=== PATIENT | female | born 1980 | race Caucasian/White ===

== ENCOUNTER → 2018-01-03 12:18 | Outpatient (CLI) | payer OTHER, SELFPAY ==
[2018-01-03 15:14] LABS: Free T4, Direct Thyroxine 1.04 ng/dL (0.78-2.19)
[2018-01-03 15:19] LABS: Follicle Stimulating Hormone 5.86 mIU/mL
[2018-01-03 15:28] LABS: Thyroid Stimulating Hormone 4.34 uIU/mL (0.47-4.68)
[2018-01-03 15:34] LABS: Rubella Antibody IgG 43.7 IU/mL (>15)
== END ==
PROVIDERS: Family Provider Physician Assistant Medical; PCP Physician Assistant Medical; Visit Provider Obstetrics & Gynecology
DX: N97.0 Female infertility associated with anovulation (principal)
CPT/HCPCS: 83001; 83002; 84439; 84443; 86762; 86777

== ENCOUNTER → 2018-01-23 13:26 | Outpatient (CLI) | payer OTHER, SELFPAY ==
--- NOTE | 2018-01-23 13:29 | DI.RAD.S_ITS ---
PROCEDURE: HL HYSTEROSAPINGOGRAPHY INDICATIONS: infertility COMPARISON: [facility], , PELVIC COMPLETE, 02/23/2015, 8:51. [facility], , PELVIC COMPLETE, 03/17/2015, 9:38. [facility], , FOOT 3V LEFT, 11/19/2015, 16:59. FINDINGS: Following speculum insertion, a balloon-tip catheter was inserted into the cervical canal, and secured by inflating the balloon by Dr. Garrison. Contrast was then injected into the endometrial canal. Uterus: The uterine cavity appears normal in size and morphology, without synechiae or masses. Fallopian tubes: Both fallopian tubes fill with contrast, and appear normal in caliber and morphology. There is ready dispersion of contrast into the peritoneal cavity. IMPRESSION: Normal hysterosalpingogram. Dictated by: Judith Paulino M.D. on 01/23/2018 at 16:22 Approved by: Judith Paulino M.D. on 01/23/2018 at 16:25
--- NOTE | 2018-02-13 10:06 | PM.PROC.1 ---
Procedures Date/Time Date of procedure: 01/23/18 Time of procedure: 13:45 General Procedure description: After informed consent was obtained, the patient was taken to the fluoroscopy room where she was placed in the dorsal lithotomy position. A bivalve speculum was placed into the vagina. A single-tooth tenaculum was placed on the anterior lip of the cervix. The cervix was cleaned x3 with Betadine. The HSG catheter passed easily into the endometrial cavity and the balloon was inflated. 25 cc of Isovue 300 were injected under direct fluoroscopic visualization. There were normal contours of the uterus. There was spill from both tubes immediately. The catheter was deflated and removed from the uterus. The single-tooth tenaculum was removed from the anterior lip of the cervix. The bivalve speculum was removed from the vagina. The patient tolerated the procedure well. Complications: none
== END ==
PROVIDERS: Family Provider Physician Assistant Medical; PCP Physician Assistant Medical; Visit Provider Obstetrics & Gynecology
DX: N97.9 Female infertility, unspecified (principal)
CPT/HCPCS: 58340; 74740

== ENCOUNTER → 2018-03-07 09:53 | Outpatient (CLI) | payer OTHER, SELFPAY ==
[2018-03-09 14:59] LABS: Progesterone 4.4 ng/mL
== END ==
PROVIDERS: Family Provider Physician Assistant Medical; PCP Physician Assistant Medical; Visit Provider Obstetrics & Gynecology
DX: N97.0 Female infertility associated with anovulation (principal)
CPT/HCPCS: 36415; 84144

== ENCOUNTER → 2018-08-06 12:35 | Outpatient (CLI) | payer OTHER, SELFPAY ==
[2018-08-06 13:50] LABS: HCG Quantitative /Beta subunit < 2.39 mIU/mL
== END ==
PROVIDERS: Family Provider Physician Assistant Medical; PCP Physician Assistant Medical; Visit Provider Obstetrics & Gynecology
DX: N92.6 Irregular menstruation, unspecified (principal)
CPT/HCPCS: 36415; 84702

== ENCOUNTER → 2018-09-12 07:22 | Outpatient (CLI) | payer SELFPAY ==
[2018-09-12 08:31] LABS: Final Volume 0.5 mL; Initial Volume 0.5 mL; Semen 30 min. Liquification? Yes
== END ==
PROVIDERS: Family Provider Physician Assistant Medical; PCP Physician Assistant Medical; Visit Provider Obstetrics & Gynecology
DX: N97.0 Female infertility associated with anovulation (principal)
CPT/HCPCS: 58323

== ENCOUNTER → 2018-11-01 10:56 | Outpatient (CLI) | payer SELFPAY ==
[2018-11-01 12:34] LABS: Final Volume 0.5 mL; Semen 30 min. Liquification? Yes
== END ==
PROVIDERS: PCP Physician Assistant Medical; Visit Provider Obstetrics & Gynecology
DX: N97.0 Female infertility associated with anovulation (principal)
CPT/HCPCS: 58323

== ENCOUNTER → 2018-11-29 08:07 | Outpatient (CLI) | payer SELFPAY ==
[2018-11-29 09:21] LABS: Semen 30 min. Liquification? Yes
== END ==
PROVIDERS: PCP Physician Assistant Medical; Visit Provider Obstetrics & Gynecology
DX: N97.0 Female infertility associated with anovulation (principal)
CPT/HCPCS: 58323

== ENCOUNTER → 2019-10-30 09:17 | Outpatient (CLI) | payer OTHER, SELFPAY ==
[2019-10-30 14:14] LABS: Urine N gonorrhoeae NOT DETECTED
[2019-10-30 15:18] LABS: Urine Chlamydia NOT DETECTED
== END ==
PROVIDERS: PCP Physician Assistant Medical; Visit Provider Specialist
DX: Z34.01 Encounter for supervision of normal first pregnancy, first trimester (principal)
CPT/HCPCS: 87491; 87591

== ENCOUNTER → 2019-10-30 09:37 | Outpatient (CLI) | payer OTHER, SELFPAY ==
[2019-10-30 10:11] LABS: Add Manual Diff / Slide Review NO; Basophils Absolute Auto 0 /uL (0-100); Basophils Percent Auto 0.3 % (0-2); Eosinophils Absolute Auto 0 /uL (0-450); Eosinophils Percent Auto 0.5 % (2-4); Hematocrit 39.1 % (36-46); Hemoglobin 13.6 g/dL (12.0-16.0); Lymphocytes Absolute Auto 2000 /uL (1100-4500); Lymphocytes Percent Auto 22.7 % (25-40); Mean Corpuscular HGB Conc 34.8 % (30-36); Mean Corpuscular Hemoglobin 30.7 PG (26-34); Mean Corpuscular Volume 88.2 fL (80-100); Monocytes Absolute Auto 600 /uL (0-900); Monocytes Percent Auto 7.3 % (3-14); Neutrophils Absolute Auto 6100 /uL (1500-7000); Neutrophils Percent Auto 69.2 % (50-75); Platelet Count 288 X10^3/uL (150-400); Red Blood Cell Count 4.43 X10^6/uL (4.0-5.2); Red Cell Distribution Width 13.3 % (11.6-14.8); White Blood Cell Count 8.8 X10^3/uL (4.5-11.0)
[2019-10-30 12:50] LABS: Appearance Urine UA CLEAR; Bilirubin Urine UA NEGATIVE (NEGATIVE); Color Urine UA YELLOW; Glucose Urine UA NEGATIVE (Negative); Ketones Urine UA NEGATIVE (NEGATIVE); Leukocyte Esterase Urine UA NEGATIVE (NEGATIVE); Nitrite Urine UA NEGATIVE (Negative); Occult Blood Urine UA NEGATIVE (Negative); Protein Urine UA NEGATIVE (Negative); Specific Gravity Urine UA <=1.005 (1.000-1.035); Urobilinogen Urine UA 0.2 E.U./dL (0.2)
[2019-10-30 12:52] LABS: pH Urine UA 6.5 (4.5-8.0)
[2019-10-31 05:47] LABS: RPR Screen Non Reactive (Non Reactive)
[2019-10-31 06:39] LABS: Varicella IgG Antibody 703 index (Immune >165)
[2019-10-31 16:36] LABS: Hepatitis B Surface Antigen NEGATIVE s/c (NEGATIVE); Rubella Antibody IgG 42.3 IU/mL (>15)
[2019-10-31 16:47] LABS: HIV 1 & 2 Ab/Ag 4th Gen Combo NEGATIVE (NEGATIVE); Hep C Virus Ab w/Reflex Quant NEGATIVE s/c (NEGATIVE)
== END ==
PROVIDERS: PCP Physician Assistant Medical; Referring Provider Specialist; Visit Provider Specialist
DX: Z34.01 Encounter for supervision of normal first pregnancy, first trimester (principal)
CPT/HCPCS: 36415; 80055; 81003; 86787; 86803; 86850; 86900; 86901; 87086; 87389; 87491; 87591

== ENCOUNTER 2019-11-28 05:04 | Emergency (ER) | payer OTHER, SELFPAY ==
[2019-11-28 05:12] VITALS: BP 109/73; PULSE 81; RESP 18; TEMP 36.4; O2SAT 100; BMI 31.6
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
[2019-11-28] MEDS: KETOROLAC 60 MG/2 ML VIAL 15 MG IV (05:35)
[2019-11-28] MEDS: SODIUM CHLORIDE 0.9% 1,000 ML 1000 ML IV ×2 (05:35→06:59)
--- NOTE | 2019-11-28 06:08 | PC.NURSE ---
PT stating IV is uncomfortabale and requested to have IV moved to another location. Rn DC'd LAC IV and placed new in L hand.
[2019-11-28 06:20] LABS: Add Manual Diff / Slide Review NO; Basophils Absolute Auto 0 /uL (0-100); Basophils Percent Auto 0.2 % (0-2); Eosinophils Absolute Auto 0 /uL (0-450); Eosinophils Percent Auto 0.1 % (2-4); Hematocrit 38.1 % (36-46); Hemoglobin 13.3 g/dL (12.0-16.0); Lymphocytes Absolute Auto 900 /uL (1100-4500); Lymphocytes Percent Auto 7.2 % (25-40); Mean Corpuscular Hemoglobin 30.9 PG (26-34); Mean Corpuscular Volume 88.3 fL (80-100); Monocytes Absolute Auto 300 /uL (0-900); Monocytes Percent Auto 2.6 % (3-14); Neutrophils Absolute Auto 11200 /uL (1500-7000); Neutrophils Percent Auto 89.9 % (50-75); Platelet Count 252 X10^3/uL (150-400); Red Blood Cell Count 4.32 X10^6/uL (4.0-5.2); Red Cell Distribution Width 13.3 % (11.6-14.8); White Blood Cell Count 12.5 X10^3/uL (4.5-11.0)
[2019-11-28 06:26] LABS: Alanine Aminotransferase 13 IU/L (<35); Albumin 4.4 g/dL (3.5-5.0); Albumin Globulin Ratio 1.5 (1.0-2.8); Alkaline Phosphatase 36 U/L (38-126); Aspartate Aminotransferase 22 IU/L (14-36); BUN Creatinine Ratio 15.9 (6-22); Blood Urea Nitrogen 10 mg/dL (7-17); Calcium 9.6 mg/dL (8.4-10.2); Carbon Dioxide 23 mmol/L (22-32); Chloride 103 mmol/L (98-107); Estimated Glomerular Filt Rate > 60.0 mL/min (>60); Glucose 113 mg/dL (70-100); HEMOLYSIS < 15 (0-50); Potassium 3.9 mmol/L (3.4-5.1); Sodium 135 mmol/L (137-145); Total Protein 7.4 g/dL (6.3-8.2)
[2019-11-28 06:41] VITALS: BP 99/60; PULSE 92; O2SAT 98
[2019-11-28 08:29] VITALS: BP 101/63; PULSE 74; RESP 16; O2SAT 99
== END 2019-11-28 08:38 | disposition home or self-care (01) ==
PROVIDERS: Emergency Provider Emergency Medicine; PCP Physician Assistant Medical
DX: O03.9 Complete or unspecified spontaneous abortion without complication (principal)
CPT/HCPCS: 36415; 80053; 85025; 96361; 96374; 99284; J1885

== ENCOUNTER → 2020-08-04 11:43 | Outpatient (CLI) | payer OTHER, SELFPAY ==
[2020-08-04 13:25] LABS: HCG Quantitative /Beta subunit 1485.8 mIU/mL
== END ==
PROVIDERS: PCP Physician Assistant Medical; Referring Provider Specialist; Visit Provider Specialist
DX: Z34.81 Encounter for supervision of other normal pregnancy, first trimester (principal)
CPT/HCPCS: 36415; 84702

== ENCOUNTER → 2020-08-06 11:44 | Outpatient (CLI) | payer OTHER, SELFPAY ==
[2020-08-06 12:33] LABS: HCG Quantitative /Beta subunit 3301.3 mIU/mL
== END ==
PROVIDERS: PCP Physician Assistant Medical; Referring Provider Specialist; Visit Provider Specialist
DX: Z34.81 Encounter for supervision of other normal pregnancy, first trimester (principal)
CPT/HCPCS: 36415; 84702

== ENCOUNTER → 2020-08-12 15:45 | Outpatient (CLI) | payer OTHER, SELFPAY ==
[2020-08-12 21:45] LABS: HCG Quantitative /Beta subunit 19948 mIU/mL
== END ==
PROVIDERS: PCP Physician Assistant Medical; Referring Provider Specialist; Visit Provider Specialist
DX: Z34.90 Encounter for supervision of normal pregnancy, unspecified, unspecified trimester (principal); Z87.59 Personal history of other complications of pregnancy, childbirth and the puerperium
CPT/HCPCS: 36415; 84702

== ENCOUNTER → 2020-08-14 16:06 | Outpatient (CLI) | payer OTHER, SELFPAY ==
[2020-08-14 17:40] LABS: HCG Quantitative /Beta subunit 27305 mIU/mL
== END ==
PROVIDERS: PCP Physician Assistant Medical; Referring Provider Specialist; Visit Provider Specialist
DX: Z34.90 Encounter for supervision of normal pregnancy, unspecified, unspecified trimester (principal); Z87.59 Personal history of other complications of pregnancy, childbirth and the puerperium
CPT/HCPCS: 36415; 84702

== ENCOUNTER → 2020-09-18 12:47 | Outpatient (CLI) | payer OTHER, SELFPAY ==
[2020-09-18 13:32] LABS: Add Manual Diff / Slide Review NO; Basophils Absolute Auto 0 /uL (0-100); Basophils Percent Auto 0.2 % (0-2); Eosinophils Absolute Auto 100 /uL (0-450); Eosinophils Percent Auto 0.5 % (2-4); Hematocrit 39.2 % (36-46); Hemoglobin 13.4 g/dL (12.0-16.0); Lymphocytes Absolute Auto 2400 /uL (1100-4500); Lymphocytes Percent Auto 20.8 % (25-40); Mean Corpuscular HGB Conc 34.3 % (30-36); Mean Corpuscular Hemoglobin 30.2 PG (26-34); Mean Corpuscular Volume 88.1 fL (80-100); Monocytes Absolute Auto 700 /uL (0-900); Monocytes Percent Auto 5.8 % (3-14); Neutrophils Absolute Auto 8400 /uL (1500-7000); Neutrophils Percent Auto 72.7 % (50-75); Platelet Count 274 X10^3/uL (150-400); Red Blood Cell Count 4.45 X10^6/uL (4.0-5.2); Red Cell Distribution Width 12.9 % (11.6-14.8); White Blood Cell Count 11.6 X10^3/uL (4.5-11.0)
[2020-09-18 15:45] LABS: Appearance Urine UA CLEAR; Bilirubin Urine UA NEGATIVE (NEGATIVE); Color Urine UA YELLOW; Glucose Urine UA NEGATIVE (Negative); Ketones Urine UA NEGATIVE (NEGATIVE); Leukocyte Esterase Urine UA NEGATIVE (NEGATIVE); Nitrite Urine UA NEGATIVE (Negative); Occult Blood Urine UA NEGATIVE (Negative); Protein Urine UA NEGATIVE (Negative); Urobilinogen Urine UA 0.2 E.U./dL (0.2)
[2020-09-18 19:47] LABS: Hepatitis B Surface Antigen NEGATIVE s/c (NEGATIVE); Rubella Antibody IgG 39.7 IU/mL (>15)
[2020-09-18 19:59] LABS: HIV 1 & 2 Ab/Ag 4th Gen Combo NEGATIVE (NEGATIVE); Hep C Virus Ab w/Reflex Quant NEGATIVE s/c (NEGATIVE)
[2020-09-19 05:11] LABS: RPR Screen Non Reactive (Non Reactive)
[2020-09-19 09:41] LABS: Varicella IgG Antibody 668 index (Immune >165)
== END ==
PROVIDERS: PCP Physician Assistant Medical; Referring Provider Specialist; Visit Provider Specialist
DX: O09.521 Supervision of elderly multigravida, first trimester (principal); Z36.0 Encounter for antenatal screening for chromosomal anomalies
CPT/HCPCS: 36415; 80055; 81003; 81420; 86787; 86803; 86850; 86900; 86901; 87086; 87389

== ENCOUNTER → 2020-11-12 16:43 | Outpatient (CLI) | payer OTHER, SELFPAY ==
[2020-11-14 21:10] LABS: AFP Value 68.6 ng/mL (.); Gest Age on Col Date 19.3 weeks (.); Gestational Age Ultrasound (.); Insulin Dep Diabetes No (.); OSBR Risk 1IN 2523 (.); Results Report (.); Test Results *Screen Negative* (.)
== END ==
PROVIDERS: PCP Physician Assistant Medical; Referring Provider Obstetrics & Gynecology; Visit Provider Obstetrics & Gynecology
DX: Z34.82 Encounter for supervision of other normal pregnancy, second trimester (principal); Z3A.19 19 weeks gestation of pregnancy
CPT/HCPCS: 36415; 82105

== ENCOUNTER → 2020-11-18 10:40 | Outpatient (CLI) | payer OTHER, SELFPAY ==
--- NOTE | 2020-11-18 10:41 | DI.US.S_ITS ---
PROCEDURE: US OB >= 14 WEEKS FETUS INDICATIONS: ANATOMY OUTSIDE/PRIOR DATING DATA: Last menstrual period (LMP): 07/04/2020. LMP-based estimated date of delivery (VIN): 04/10/2021 . First dating scan (date and location): 08/21/2020 . Estimated date of delivery (VIN) from first dating scan: 04/06/2021 . TECHNIQUE: Real-time scanning was performed of the fetus, with image documentation and biometric measurements. Endovaginal scanning: No COMPARISON: [facility], , OB <= 14 WEEKS FETUS, 08/21/2020, 11:21. FINDINGS: General: A single living intrauterine gestation is present. Presentation: Vertex. Placenta: Placental position is posterior , without previa. Amniotic fluid index: 12.5 cm, normal range is 5-24 cm. heart rate: 149 beats per minute. Maternal cervical canal: 5.2 cm long. Normal lower limit is 2.5 cm. biometrics: Biparietal diameter: 20 weeks 4 days Head circumference: 20 weeks 4 days Abdominal circumference: 20 weeks 4 days Femur length: 20 weeks 2 days Estimated gestational age from initial scan: 20 weeks 1 day Composite gestational age from present scan: 20 weeks 4 days Estimated weight and percentile: 356 g; 64th percentile Measurement variability for biometric dating: +/- 7 days from 14 weeks to 15 weeks 6 days gestation, +/- 10 days from 16 weeks to 21 weeks 6 days gestation, +/- 2 weeks from 22 weeks to 27 weeks 6 days gestation, +/- 3 weeks for 28 weeks gestation or later. weight reference: 4500 g or EFW >90/95% is considered macrosomia or large for gestational age. EFW <10% is small for gestational age. EFW 5% or less is considered intra-uterine growth restriction. Anatomic survey: Neuro: Ventricles are non-dilated at less than 10 mm. Cisterna magna is normal at 3-11 mm. Cerebellum is normal in size and morphology. Nuchal skin fold: Normal at less than 6 mm between 14-21 weeks gestational age. Face: Nose and lips, facial profile are normal. Spine: No evidence for spina bifida. Heart: 4-chambered heart is present, with normal ventricular outflow tracts. Diaphragm: Diaphragm is intact. Stomach: Left-sided stomach is present. Kidneys: No hydronephrosis. Normal is less than 5 mm in 2nd trimester, less than 7 mm in 3rd trimester. Cord: 3-vessel cord has orthotopic insertion. Bladder: Normal in size. Extremities: All 4 extremities identified. Possible small maternal anterior intramural fibroid measuring 2.6 cm. IMPRESSION: 1. Normal interval growth. 2. Normal anatomic survey. Dictated by: Phoenix Mayorga [facility] Interpreted: Loren De Jesus MD on 11/18/2020 at 16:16 Transcribed by: DONAVAN on 11/18/2020 at 16:18 Approved by: Loren De Jesus M.D. on 11/18/2020 at 17:12
== END ==
PROVIDERS: PCP Physician Assistant Medical; Referring Provider Specialist; Visit Provider Specialist
DX: Z34.82 Encounter for supervision of other normal pregnancy, second trimester (principal); Z3A.20 20 weeks gestation of pregnancy
CPT/HCPCS: 76811

== ENCOUNTER → 2020-12-30 10:21 | Outpatient (CLI) | payer OTHER, SELFPAY ==
[2020-12-30 12:02] LABS: Hematocrit 33.6 % (36-46); Hemoglobin 11.5 g/dL (12.0-16.0)
[2020-12-30 12:11] LABS: GTT (PREG) 1 Hour PP 50gm Dose 107 mg/dL (76-139)
== END ==
PROVIDERS: PCP Physician Assistant Medical; Referring Provider Specialist; Visit Provider Specialist
DX: Z34.82 Encounter for supervision of other normal pregnancy, second trimester (principal); Z3A.25 25 weeks gestation of pregnancy
CPT/HCPCS: 36415; 82950; 85014; 85018

== ENCOUNTER → 2021-03-12 15:43 | Outpatient (CLI) | payer OTHER, SELFPAY ==
[2021-03-13 14:43] LABS: Strep Grp B PCR POS for Grp B Strep
== END ==
PROVIDERS: PCP Physician Assistant Medical; Visit Provider Specialist
DX: Z34.83 Encounter for supervision of other normal pregnancy, third trimester (principal); Z3A.36 36 weeks gestation of pregnancy
CPT/HCPCS: 87653

== ENCOUNTER 2021-04-10 11:03 | Outpatient (CLI) | payer OTHER, SELFPAY ==
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
== END 2021-04-10 11:45 | disposition home or self-care (01) ==
LOC: OB 04-14 07:15
PROVIDERS: PCP Physician Assistant Medical; Referring Provider Specialist; Visit Provider Specialist
DX: O48.0 Post-term pregnancy (principal); O09.523 Supervision of elderly multigravida, third trimester; Z3A.40 40 weeks gestation of pregnancy
CPT/HCPCS: 59025; G0378; G0379

== ENCOUNTER 2021-04-12 04:30 | Outpatient (CLI) | payer OTHER, SELFPAY ==
[2021-04-12] MEDS: MORPHINE 10 MG/ML INJ IM (08:00)
== END 2021-04-12 08:07 | disposition home or self-care (01) ==
LOC: OB 04-14 11:31
PROVIDERS: PCP Physician Assistant Medical; Referring Provider Obstetrics & Gynecology; Visit Provider Obstetrics & Gynecology
DX: O48.0 Post-term pregnancy (principal); O09.523 Supervision of elderly multigravida, third trimester; Z3A.40 40 weeks gestation of pregnancy
CPT/HCPCS: 59025; 59050; 96372; G0378; G0379; J2270

== ENCOUNTER 2021-04-13 09:22 | Inpatient (IN) | payer OTHER, SELFPAY ==
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
[2021-04-13 11:51] LABS: Add Manual Diff / Slide Review NO; Basophils Absolute Auto 0 /uL (0-100); Basophils Percent Auto 0.3 % (0-2); Eosinophils Absolute Auto 0 /uL (0-450); Hematocrit 34.9 % (36-46); Hemoglobin 11.9 g/dL (12.0-16.0); Lymphocytes Absolute Auto 1600 /uL (1100-4500); Mean Corpuscular Volume 88.4 fL (80-100); Monocytes Absolute Auto 700 /uL (0-900); Monocytes Percent Auto 4.7 % (3-14); Neutrophils Absolute Auto 11900 /uL (1500-7000); Platelet Count 195 X10^3/uL (150-400); Red Blood Cell Count 3.95 X10^6/uL (4.0-5.2); Red Cell Distribution Width 14.7 % (11.6-14.8); White Blood Cell Count 14.2 X10^3/uL (4.5-11.0)
[2021-04-13] MEDS: PENICILLIN G POTASSIUM 5,000,000 UNIT in DEXTROSE 5% IN WATER 250 ML IV ×2 (12:30→23:49)
[2021-04-13 14:23] VITALS: BP 117/78
[2021-04-13 14:51] LABS: COVID19 -Nasal RAPID Negative (Negative)
[2021-04-13] MEDS: PENICILLIN G POTASSIUM 3,000,000 UNIT/50 ML FROZ.PIGGY 100 UNIT IV (15:52)
--- NOTE | 2021-04-13 17:45 | PM.OBPNLAB ---
Date/Time Date Patient Seen: 04/13/21 Time Patient Seen: 16:45 Pain Control Pain control: tolerating well and epidural Pelvic Exam Dilation (cm): 5 Effacement (%): 100 station: +1 Amniotic membrane status: Ruptured Comments: AROM, no meconium seen Contractions Contractions on admission: irregular Monitor mode: External Contraction pattern: Regular Contraction phase: Resting Contraction intensity: Moderate Status status: Category l Heart Rate Baseline: 130 Monitor Accelerations: Present Monitor Decelerations: Absent Monitor Variability: Moderate Assessment and Plan Assessment: other (Latent phase labor) Plan: continuous present management Comments: Will initiate augmentation if contractions do not increase in frequency/intensity following AROM
[2021-04-13] MEDS: LACTATED RINGERS 1,000 ML 1000 ML IV (18:09)
--- NOTE | 2021-04-13 20:43 | PM.OBPNLAB ---
Date/Time Date Patient Seen: 04/13/21 Time Patient Seen: 20:43 Pain Control Pain control: tolerating well Pelvic Exam Dilation (cm): 8 Effacement (%): 100 station: +1 Amniotic membrane status: Ruptured Contractions Monitor mode: External Contraction pattern: Regular Contraction phase: Resting Contraction intensity: Moderate Status status: Category l Monitor Accelerations: Present Monitor Decelerations: Absent Monitor Variability: Moderate Assessment and Plan Assessment: active labor Plan: continuous present management
--- NOTE | 2021-04-13 22:37 | PM.OBPNLAB ---
Date/Time Date Patient Seen: 04/13/21 Time Patient Seen: 22:37 Pain Control Pain control: tolerating well and epidural Comments: Third HEATHER in place with excellent relief Pelvic Exam Dilation (cm): 10 Effacement (%): 100 station: +2 Amniotic membrane status: Ruptured Contractions Monitor mode: External Contraction frequency (min): 4 Contraction pattern: Regular Contraction phase: Resting Contraction intensity: Moderate Status status: Category l Heart Rate Baseline: 130 Monitor Accelerations: Present Monitor Decelerations: Absent Monitor Variability: Moderate Assessment and Plan Assessment: active labor Plan: continuous present management Comments: Start pushing in 2nd stage
[2021-04-13] MEDS: OXYTOCIN PREMIX 30 UNIT/500 ML PLAST..BAG IV (23:13)
--- NOTE | 2021-04-14 01:18 | PM.OBPRVD ---
Events: Other (Advanced maternal age, GBS positive) Labor & Delivery Delivery date: 04/14/21 Intrapartal Events: Hypotonic Dysfunction Induction method: none Delivery augmentation: rupture of membranes and pitocin Delivery monitor: external FHT and external uterine Route of delivery: vacuum extraction Indication for instrumentation: maternal exhaustion Episiotomy description: None L&D Laceration Description: Perineal - 2nd Degree and Vaginal - 2nd Degree Delivery repair: chromic Estimated blood loss (mL): 250 Anesthesia Type: Epidural Complications: None Narrative: After pushing for 1.5 hours vigorously following more than 3 days of prodrome labor, the patient was exhausted and could not push any further. Estimated weight was 8 lb, position CELINA, and clinical pelvimetry adequate. After discussion regarding all options, the decision was made to proceed vacuum extraction. A kiwi Omni cup was applied to the vertex at +2 station and with 4 pulls, the vertex delivered over intact perineum with a compound presentation involving the left forearm and hand. Pressures applied via the vacuum extractor never exceeded 550 mmHg and there were no pop offs. Suction was relieved between cycles and there was minimal deformation of the scalp. The shoulders delivered easily after reducing the left arm and the infant was immediately placed in skin to skin contact. Delayed cord clamping greater than 90 seconds. The umbilical cord was then doubly clamped and cut by the father and a cord blood sample was obtained for routine blood per. The placenta delivered spontaneously with the assistance of gentle cord traction and was seen to be intact with 3 vessels and central insertion. Inspection of the introitus revealed a left sided vaginal laceration and a midline perineal laceration, both of which were 2nd degree and . Each was closed with 00 chromic in a running interlocking stitch and subcuticular stitches as appropriate. Sponge, instrument, and needle counts were correct both before and after procedure. Mother and infant tolerated the delivery process well and no complications were experienced. Baby 1: Infant gender: Male Presentation: compound (Vertex/left forearm and hand) Position: Left Occiput Anterior Placenta delivery description: Spontaneous Cord Vessel Description: 3 Vessels score (1 min): 9 score (5 min): 9 weight: 8 lb 12.531 oz Plan for aftercare: Routine care
[2021-04-14 05:24] LABS: Hematocrit 32.7 % (36-46); Hemoglobin 10.9 g/dL (12.0-16.0)
[2021-04-14] MEDS: IBUPROFEN 600 MG TABLET PO ×2 (09:04→16:52)
[2021-04-14] MEDS: PRENATAL VIT,CALC/IRON/FOLIC 1 TABLET 1 TAB PO (09:04)
[2021-04-14] MEDS: DOCUSATE 100 MG CAPSULE PO (09:04)
[2021-04-14] MEDS: ACETAMINOPHEN 325 MG TABLET 650 MG PO (12:11)
--- NOTE | 2021-04-14 17:38 | PM.OBDS.1 ---
Discharge Providers Provider Date of admission: 04/13/21 09:22 Discharge Date: 04/14/21 Primary care physician: Mili Jessica PA-C Consults: 04/15/21 01:15 Consult to Marine Equipment Engineer Routine Comment: Discharge provider: Zhen Smith MD Summary Hospital Course Date Patient Seen: 04/14/21 Time Patient Seen: 12:35 Diagnoses: Intrauterine gestation, [place], 41+ 0 weeks gestational age, delivered Hospital Course: After nearly 3 days of prodromal labor, the patient was admitted on the morning of 04/13/2021 in latent phase labor. She progressed spontaneously and had AROM performed on the afternoon of 04/13/2021. She progressed spontaneously into the 2nd stage of labor late on the evening of 928 and delivered with the assistance of vacuum extraction a viable male Apgars of 9 9 and a weight of 8 lb 12.5 oz. she sustained a second-degree perineal laceration at the time delivery which was repaired in the usual manner and estimated blood loss at delivery was 250 cc. First morning hemoglobin and hematocrit were consistent with those observed operative losses and she remained afebrile and normotensive throughout her course. She will be discharged at this time been afebrile normotensive condition with medications to include ibuprofen 600 mg p.o. q.6 hours as needed pain and vitamins 1 p.o. q.d.. Prior to discharge she was counseled regarding precautionary symptoms, limitations activity, medications, and plans for follow-up. She will be seen in the office in 6 weeks for her check and has not yet made a decision about post delivery contraception. Peripartum Data Infant Delivery Method: Assisted Delivery (Vacuum extraction due to maternal exhaustion) Laceration Description: Perineal - 2nd Degree and Vaginal - 2nd Degree Episiotomy description: None complications: none [place] 1: Gender: Male Disposition of : home Discharge Diagnosis (1) Vacuum extraction, delivered, current hospitalization: Status: Acute (2) AMA (advanced maternal age) primigravida 35+: Status: Acute Status at Discharge Cognitive/behavioral status at discharge: at baseline, oriented Functional status at discharge: independent ambulation Overall status at discharge: patient is progressing back to baseline Time Spent with Patient Time attestation: Total time spent providing and/or coordinating discharge services: Time spent: Less than 30 minutes Objective Labs Result Diagrams: 04/14/21 05:00 Labs: Laboratory Results - last 24 hr 04/14/21 05:00 Hgb 10.9 L Hct 32.7 L Exam Const General: cooperative and comfortable Nutritional Appearance: average body habitus Orientation: alert and oriented x3 HENMT Head: normal to inspection Eyes General: appearance normal, both eyes and all related structures Neck Neck: normal visual inspection Resp Effort & Inspection: normal respiratory effort and able to speak in complete sentences GI Inspection: normal to inspection Palpation: soft, no hepatosplenomegaly and mass (U-4, nontender, firm) Rectal Exam: hemorrhoids External Female Exam: other (Laceration repairs intact, minimal ecchymosis) Extrem General: No calf tenderness Psych Appearance: grossly normal Mental Status: mental status grossly normal Speech and Movement: speech and movement normal Mood: congruent mood Affect: normal affect Attitude: cooperative Thought Process: normal Thought Content: normal Judgment: judgment good Discharge Plan Discharge Plan Patient Disposition: Home Provider Discharge Comment: Please review written instructions. Your follow-up appointment is scheduled for [address] sTe. Discharge orders & Medications Prescriptions: New ibuprofen 600 mg Tablet 600 mg PO Q6HR PRN (Reason: Pain, Mild (1-3)) Qty: 60 RF: 2 Continued prenat.vits,bo,[id number] tablet 1 tab PO DAILY RF: 0 biotin 2,500 mcg capsule 5 mg PO DAILY RF: 0 folate 1 tab PO DAILY RF: 0 Discontinued aspirin 81 mg tablet,chewable 81 mg PO DAILY RF: 0 Follow up/Referrals: Fanta Tse MD [Physician] - (May 14, at 1:15pm with Dr Tse ) Mili Jessica PA-C [Primary Care Provider] - Discharge Health Status Multidrug resistant organism: No MDRO Diet/Activity/Treatments Diet: Diet as Tolerated Skin/Wound/Dressing Care Report to your healthcare provider any signs of infection, such as:: chills, fever, increased pain, unusual drainage and unusual redness Visit Report/Discharge Packet Instructions: DI for Labor and Delivery, Vaginal , DI for and Nipple Soreness Stand Alone Forms: Discharge: Care Discharge Data Primary Care Provider: Mili Jessica
[2021-04-14 17:40] VITALS: BP 120/84; PULSE 88; RESP 16; TEMP 36.2
== END 2021-04-14 19:25 | disposition home or self-care (01) | DRG 807 ==
PROVIDERS: Specialist; Admitting Provider Obstetrics & Gynecology; PCP Physician Assistant Medical; Referring Provider Obstetrics & Gynecology; Visit Provider Obstetrics & Gynecology
DX: O48.0 Post-term pregnancy (principal); Z37.0 Single live birth; O62.4 Hypertonic, incoordinate, and prolonged uterine contractions; Z3A.41 41 weeks gestation of pregnancy; Z20.822 Contact with and (suspected) exposure to COVID-19; O99.824 Streptococcus B carrier state complicating childbirth; O70.1 Second degree perineal laceration during delivery
CPT/HCPCS: 01967; 36415; 59025; 59050; 59400; 59409; 85014; 85018; 85025; 86850; 86900; 86901; 87635; 96372; C9803; G0379; J2270; J2405; J2540; J2590

== ENCOUNTER → 2022-11-09 15:54 | Outpatient (CLI) | payer OTHER, SELFPAY | PROVIDERS: PCP Physician Assistant Medical; Visit Provider Student in an Organized Health Care Education/Training Program | DX: J02.9 Acute pharyngitis, unspecified (principal) | CPT/HCPCS: 87070 ==